=== PATIENT | male | born 1955 | race African-American/Black ===

== ENCOUNTER 2016-09-21 21:07 | Emergency (ER) | payer OTHER ==
[~2016-09-21 21:07] MED LIST: ERYTHROMYCIN O3.5 GM OD; GENTAK3.5 G1 OP; KETOPROFEN PO
== END 2016-09-21 21:19 | disposition left against medical advice (07) ==
LOC: CED 21:07
DX: Z53.21 Procedure and treatment not carried out due to patient leaving prior to being seen by health care provider (principal)

== ENCOUNTER 2017-02-12 07:36 | Emergency (ER) | payer OTHER ==
[~2017-02-12] VITALS: Ht 186.7 cm; Wt 68.0 kg
== END 2017-02-12 21:32 | disposition home or self-care (01) ==
LOC: CED 07:36
DX: T54.91XA Toxic effect of unspecified corrosive substance, accidental (unintentional), initial encounter (principal); T26.92XA Corrosion of left eye and adnexa, part unspecified, initial encounter; T26.91XA Corrosion of right eye and adnexa, part unspecified, initial encounter; H10.213 Acute toxic conjunctivitis, bilateral
CPT/HCPCS: 96372; 99283; J1885; J2270